=== PATIENT | female | born 1995 ===

== ENCOUNTER 2017-08-20 17:29 | Emergency (ER) | payer OTHER ==
[2017-08-20 17:29] VITALS: BMI 34.1
[2017-08-20 20:13] VITALS: BP 115/68; PULSE 84; RESP 16; TEMP 98.9; O2SAT 99
--- NOTE | 2017-08-20 20:35 | C.PDOC ---
History Of Present Illness 21 year old female presents to the ED with complaints of diffuse rash "since childhood." Patient states outbreaks of the rash are becoming more frequent and is requesting treatment. She denies fever, chest pain, shortness of breath, or other associated complaints. Time Seen by Provider: 08/20/17 19:36 Chief Complaint (Nursing): Abnormal Skin Integrity History Per: Patient History/Exam Limitations: no limitations Onset/Duration Of Symptoms: Persistent Current Symptoms Are (Timing): Still Present Quality Of Symptoms: denies: Swollen, Draining Past Medical History Reviewed: Historical Data, Nursing Documentation, Vital Signs Vital Signs: Last Vital Signs Temp 98.9 F 08/20/17 20:12 Pulse 84 08/20/17 20:12 Resp 16 08/20/17 20:12 BP 115/68 08/20/17 20:12 Pulse Ox 99 08/21/17 01:45 - Medical History PMH: Anxiety, Asthma, Kidney Stones - [facility] Procedures ARTIF RUPT MEMBRANES NEC (10/19/14) DELIVERY OF PRODUCTS OF CONCEPTION, EXTERNAL APPROACH (11/07/16) EPISIOTOMY (10/19/14) MEDICAL INDUCTION LABOR (10/19/14) REPAIR PERINEUM SKIN, EXTERNAL APPROACH (11/07/16) Family History: States: Unknown Family Hx - Social History Hx Tobacco Use: No Hx Alcohol Use: No Hx Substance Use: No - Immunization History Hx Tetanus Toxoid Vaccination: No Hx Influenza Vaccination: No Hx Pneumococcal Vaccination: No Review Of Systems Constitutional: Negative for: Fever, Chills Cardiovascular: Negative for: Chest Pain, Palpitations Respiratory: Negative for: Cough, Shortness of Breath Gastrointestinal: Negative for: Nausea, Vomiting Skin: Positive for: Rash Physical Exam - Physical Exam Appears: Non-toxic, No Acute Distress Skin: Warm, Dry, Rash (dry scaly rash at different stages present to popliteal and antecubital areas ) Eye(s): bilateral: Normal Inspection, PERRL, EOMI Ear(s): Bilateral: Normal Nose: Normal, No Discharge Oral Mucosa: Moist, No Dry Throat: Normal, No Erythema, No Exudate, No Drooling Neck: Supple Chest: Symmetrical, No Deformity Cardiovascular: Rhythm Regular Respiratory: Normal Breath Sounds, No Rales, No Rhonchi, No Wheezing Neurological/Psych: Oriented x3 ED Course And Treatment O2 Sat by Pulse Oximetry: 99 (RA) Disposition Counseled Patient/Family Regarding: Diagnosis, Need For Followup, Rx Given - Disposition Disposition: HOME/ ROUTINE Disposition Time: 20:31 Condition: STABLE Additional Instructions: Please follow up with Dermatology Return to ER if worse Prescriptions: Triamcinolone Acetonide [Kenalog 0.5% cream] 1 applic TOP BID #60 g Instructions: Dermatitis (ED) Forms: [facility] (Faroese) - Clinical Impression Clinical Impression: Chronic dermatitis - PA / [employer] / Resident Statement MD/DO has reviewed & agrees with the documentation as recorded. - Scribe Statement The provider has reviewed the documentation as recorded by the Scribe Savanna Douglass All medical record entries made by the Gold were at my direction and personally dictated by me. I have reviewed the chart and agree that the record accurately reflects my personal performance of the history, physical exam, medical decision making, and the department course for this patient. I have also personally directed, reviewed, and agree with the discharge instructions and disposition.
== END 2017-08-20 20:39 | disposition home or self-care (01) ==
LOC: C.ER 17:29
DX: L30.9 Dermatitis, unspecified (principal)

== ENCOUNTER 2017-11-10 14:07 | Emergency (ER) | payer OTHER ==
[2017-11-10 14:08] VITALS: BMI 34.1
[2017-11-10] MEDS ORDERED: Albuterol-Ipratrop 3 mg / 0.5 (3 ml) UD ONE (14:18)
[2017-11-10 14:56] VITALS: TEMP 97.9
[2017-11-10] MEDS ORDERED: Silver Sulfadiazine 1% Cream (20 gm) TOP STA (15:18)
[2017-11-10] MEDS ORDERED: Lidocaine 2% w Epi 1:100,000 Inj IJ ONE (15:47)
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
[2017-11-10 17:59] VITALS: BP 120/54
[2017-11-10 19:02] VITALS: PULSE 97; RESP 17; O2SAT 99
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
== END 2017-11-10 19:04 | disposition home or self-care (01) ==
LOC: C.ER 14:07
DX: S01.112A Laceration without foreign body of left eyelid and periocular area, initial encounter (principal); S01.81XA Laceration without foreign body of other part of head, initial encounter; Y04.0XXA Assault by unarmed brawl or fight, initial encounter; T24.231A Burn of second degree of right lower leg, initial encounter; X19.XXXA Contact with other heat and hot substances, initial encounter